=== PATIENT | male | born 1965 | race Caucasian/White ===

== ENCOUNTER 2018-08-11 11:34 | Emergency (ER) | payer OTHER ==
[2018-08-11] MEDS ORDERED: Bupivacaine 0.5% 50 ML MDV INFILT ONE (11:52)
--- NOTE | 2018-08-11 11:53 | EDM.PDOC ---
ED HPI GENERAL MEDICAL PROBLEM - General Chief Complaint: Upper Extremity Injury/Pain Stated Complaint: LEFT FIRST FINGER PINCHED IN DOOR Time Seen by Provider: 08/11/18 11:45 Source of Information: Reports: Patient History Limitations: Reports: No Limitations - History of Present Illness INITIAL COMMENTS - FREE TEXT/NARRATIVE: 53-year-old male pinched his finger in a door. Onset: Sudden Duration: Hour(s): (Within the last hour) Location: Reports: Other (Left index finger) Associated Symptoms: Reports: No Other Symptoms Left Hand Pain Score (Numeric/FACES): 5 - Related Data Allergies Allergy/AdvReac Type Severity Reaction Status Date / Time No Known Allergies Allergy Verified 08/11/18 11:49 Home Meds: Home Meds Dextroamphetamine/Amphetamine [Adderall 20 mg Tablet] 20 tab PO TID 08/11/18 [ History] Lisinopril 30 mg PO DAILY 08/11/18 [History] Review of Systems - Review of Systems Review Of Systems: See Below Constitutional: Denies: Fever Respiratory: Denies: Shortness of Breath GI/Abdominal: Denies: Nausea, Vomiting ED EXAM, GENERAL - Physical Exam Exam: See Below Exam Limited By: No Limitations General Appearance: Alert, No Apparent Distress, Anxious Respiratory/Chest: No Respiratory Distress Extremities: Other (Exam is otherwise limited to the left hand. The patient has a crush injury to the distal index finger. There is a 3 cm angled laceration to the pulp, and also a subungual hematoma under the nail. The DIP joint is nontender.) Course - Vital Signs Last Recorded V/S: Last Vital Signs Temp 97.8 F 08/11/18 12:12 Pulse 67 08/11/18 12:12 Resp 16 08/11/18 12:12 BP 93/36 L 08/11/18 12:12 Pulse Ox 94 L 08/11/18 12:12 - Orders/Labs/Meds Meds: Medications Discontinued Medications Generic Name Dose Route Start Last Admin Trade Name Freq PRN Reason Stop Dose Admin Bacitracin 1 dose 08/11/18 12:19 08/11/18 12:33 Bacitracin Oint 1 Gm TOP 08/11/18 12:20 1 dose ONETIME ONE Administration Bupivacaine HCl 50 ml 08/11/18 11:52 08/11/18 12:33 Marcaine 0.5% INFILT 08/11/18 11:53 50 ml ONETIME ONE Administration Bupivacaine HCl/Epinephrine Bitart Confirm 08/11/18 11:57 08/11/18 12:33 Marcaine 0.5%/Epinephrine 1:200,000 Administered 08/11/18 11:58 Not Given Dose 50 ml .ROUTE .[facility] - Re-Assessments/Exams Free Text/Narrative Re-Assessment/Exam: 08/11/18 12:14 The finger was sterilized with alcohol, and a 0.5% Marcaine digital block was infiltrated to the finger. The wound was then cleansed thoroughly and 6 4-0 Ethilon sutures were used to close the laceration and cautery was used to release the subungual hematoma. Topical bacitracin and a dressing was applied, the patient's tetanus is current. A finger splint was given to protect the finger and the sutures can come out in 8 days. Departure - Departure Time of Disposition: 12:34 Disposition: Home, Self-Care 01 Condition: Good Clinical Impression: Finger laceration Qualifiers: Encounter type: initial encounter Finger: index finger Damage to nail status: with damage Foreign body presence: without foreign body Laterality: left Qualified Code(s): S61.311A - Laceration without foreign body of left index finger with damage to nail, initial encounter Subungual hematoma of finger Qualifiers: Encounter type: initial encounter Qualified Code(s): S60.10XA - Contusion of unspecified finger with damage to nail, initial encounter - Discharge Information Instructions: Laceration Care, Adult Referrals: PCP,None [Primary Care Provider] - Forms: ED Department Discharge Care Plan Goals: Keep finger covered and clean while healing. Sutures can be removed in 8 days, and wear splint to protect the finger while healing. Recheck sooner if concerns of infection or not healing satisfactorily.
[2018-08-11] MEDS: Bupivacaine 0.5%/EPINEPHrine 1:200,000 50 ML MDV ONE ×2 (12:16→12:33)
[2018-08-11] MEDS ORDERED: Bacitracin Oint 1 GM U/D Packet TOP ONE (12:19)
== END 2018-08-11 12:34 | disposition home or self-care (01) ==
LOC: JP.ED 11:34
DX: S61.311A Laceration without foreign body of left index finger with damage to nail, initial encounter (principal); Z79.899 Other long term (current) drug therapy; W23.0XXA Caught, crushed, jammed, or pinched between moving objects, initial encounter
CPT/HCPCS: 11740; 12002; 99283; J3490

== ENCOUNTER 2023-01-19 22:11 | Inpatient (IN) | payer OTHER ==
[2023-01-19] MEDS ORDERED: Ondansetron 4 MG/2 ML SDV IVPUSH ONE (22:57)
[2023-01-19] MEDS ORDERED: Sodium Chloride 0.9% 10 ML Syringe FLUSH PRN (22:57)
[2023-01-19] MEDS ORDERED: Sodium Chloride 0.9% 1,000 ML IV SCH (23:00)
[2023-01-19] MEDS ORDERED: Iopamidol 612 MG/ML 100 ML Bottle IV STA (23:06)
[2023-01-19] MEDS ORDERED: Sodium Chloride 0.9% 50 ML IV STA (23:07)
[2023-01-19 23:35] LABS: ESTIMATED GFR 105 mL/min (>60)
[2023-01-19 23:48] LABS: CORONAVIRUS COVID-19 NAA NEGATIVE (NEGATIVE)
[2023-01-20] MEDS ORDERED: fentaNYL 50 MCG/ML SDV IVPUSH PRN (00:10)
[2023-01-20] MEDS ORDERED: Sodium Chloride 0.9% 1,000 ML IV SCH (00:30)
[2023-01-20] MEDS: Piperacillin/Tazobactam 3.375 GM in Sodium Chloride 0.9% 50 ML IV SCH ×2 (00:43→06:10)
[2023-01-20] MEDS: HYDROmorphone 1 MG/ML Syringe IVPUSH PRN ×5 (01:33→08:33)
[2023-01-20] MEDS ORDERED: Acetaminophen 1,000 MG in Premix Bag 1 BAG IV ONE ×2 (07:26→07:45)
[2023-01-20] MEDS ORDERED: Rocuronium 50 MG/5 ML Vial ONE ×2 (08:29→10:56)
[2023-01-20] MEDS ORDERED: fentaNYL 250 MCG/5 ML SDV ONE ×2 (08:29→10:17)
[2023-01-20] MEDS ORDERED: Neostigmine Methylsulfate 1 MG/ML 5 ML Syringe ONE (08:29)
[2023-01-20] MEDS ORDERED: Dexamethasone 4 MG/ML SDV ONE (08:29)
[2023-01-20] MEDS ORDERED: Succinylcholine 200 MG/10 ML MDV ONE (08:29)
[2023-01-20] MEDS ORDERED: Propofol 200 MG/20 ML SDV ONE (08:29)
[2023-01-20] MEDS ORDERED: Glycopyrrolate 0.2 MG/ML 5 ML MDV ONE (08:29)
[2023-01-20] MEDS ORDERED: Ondansetron 4 MG/2 ML SDV ONE (08:29)
[2023-01-20] MEDS ORDERED: Bupivacaine 0.5%/EPINEPHrine 1:200,000 50 ML MDV ONE (09:59)
[2023-01-20] MEDS ORDERED: Sodium Chloride 0.9% 10 ML ONE (10:33)
[2023-01-20] MEDS ORDERED: Meropenem 500 MG SDV ONE (10:33)
[2023-01-20] MEDS ORDERED: Meropenem 500 MG SDV IRR ONE (10:42)
[2023-01-20] MEDS ORDERED: Lactated Ringers 1,000 ML ONE ×2 (11:26)
[2023-01-20] MEDS: Piperacillin/Tazobactam/Dext 3.375 GM in Premix Bag 1 BAG IV SCH ×3 (12:29→23:46)
[2023-01-20] MEDS: Sodium Chloride 0.9% 1,000 ML IV SCH ×2 (13:38→22:12)
[2023-01-20] MEDS: Amphetamine/Dextroamphetamine Salts 10 MG Tab PO SCH (16:13)
[2023-01-20] MEDS: HYDROmorphone 0.5 MG/0.5 ML Syringe IVPUSH PRN ×2 (17:43→21:48)
[2023-01-20] MEDS: Acetaminophen/HYDROcodone 325-5 MG Tab PO PRN ×2 (19:26→23:44)
[2023-01-21] MEDS: HYDROmorphone 0.5 MG/0.5 ML Syringe IVPUSH PRN (02:31)
[2023-01-21] MEDS: Acetaminophen/HYDROcodone 325-5 MG Tab PO PRN ×5 (04:43→20:27)
[2023-01-21] MEDS: Piperacillin/Tazobactam/Dext 3.375 GM in Premix Bag 1 BAG IV SCH ×4 (05:35→23:47)
[2023-01-21] MEDS ORDERED: HYDROmorphone/Normal Saline 6 MG/30 ML PCA Vial IV PRN (07:06)
[2023-01-21] MEDS ORDERED: Naloxone 0.4 MG/ML SDV IV PRN (07:15)
[2023-01-21] MEDS: Amphetamine/Dextroamphetamine Salts 10 MG Tab PO SCH ×3 (08:19→16:21)
[2023-01-21] MEDS: Docusate Sodium 100 MG Cap PO SCH ×2 (11:12→20:25)
[2023-01-21] MEDS: Bisacodyl 5 MG Tab PO SCH ×2 (11:13→20:24)
[2023-01-21] MEDS: Lisinopril 20 MG Tab PO SCH (13:40)
[2023-01-21] MEDS ORDERED: Sodium Chloride 0.9% 1,000 ML IV SCH (15:30)
[2023-01-22] MEDS: Acetaminophen/HYDROcodone 325-5 MG Tab PO PRN ×3 (00:36→17:31)
[2023-01-22] MEDS: Piperacillin/Tazobactam/Dext 3.375 GM in Premix Bag 1 BAG IV SCH ×3 (05:31→17:33)
[2023-01-22] MEDS: Ondansetron 4 MG/2 ML SDV IVPUSH PRN ×2 (05:39→17:26)
[2023-01-22] MEDS: Amphetamine/Dextroamphetamine Salts 10 MG Tab PO SCH ×3 (07:29→15:09)
[2023-01-22] MEDS: Lisinopril 20 MG Tab PO SCH (08:26)
[2023-01-22] MEDS: Docusate Sodium 100 MG Cap PO SCH ×2 (08:26→20:41)
[2023-01-22] MEDS: Bisacodyl 5 MG Tab PO SCH ×2 (08:26→20:41)
[2023-01-22] MEDS ORDERED: Bisacodyl 10 MG Supp RECTAL ONE (09:30)
[2023-01-22] MEDS: Metoclopramide 10 MG/2 ML SDV IV SCH ×3 (10:32→21:41)
[2023-01-22] MEDS: Azithromycin 125 MG in Sodium Chloride 0.9% 100 ML IV SCH ×2 (10:32→22:40)
[2023-01-22] MEDS ORDERED: Sodium Phosphate,Monobasic/Sodium Phosphate,Dibasic Enema 133 ML Bottle RECTAL ONE (15:08)
[2023-01-22] MEDS ORDERED: Bisacodyl 10 MG Supp RECTAL PRN (16:00)
[2023-01-23] MEDS: Piperacillin/Tazobactam/Dext 3.375 GM in Premix Bag 1 BAG IV SCH ×5 (00:01→23:44)
[2023-01-23] MEDS: Metoclopramide 10 MG/2 ML SDV IV SCH (04:01)
[2023-01-23] MEDS: Amphetamine/Dextroamphetamine Salts 10 MG Tab PO SCH ×4 (07:53→17:04)
[2023-01-23] MEDS: Lisinopril 20 MG Tab PO SCH (08:01)
[2023-01-23 08:14] LABS: ESTIMATED GFR 65 mL/min (>60)
[2023-01-23] MEDS ORDERED: Sodium Chloride 0.9% 1,000 ML IV ONE (10:15)
[2023-01-23] MEDS ORDERED: HYDROmorphone 0.5 MG/0.5 ML Syringe IVPUSH PRN (10:32)
[2023-01-23] MEDS: Enoxaparin 40 MG/0.4 ML Syringe SUBCUT SCH (11:36)
[2023-01-23] MEDS: Sodium Chloride 0.9% 1,000 ML IV SCH ×2 (14:14→22:45)
[2023-01-23] MEDS: Ketorolac 15 MG/ML SDV IVPUSH SCH ×2 (17:04→21:22)
[2023-01-24] MEDS: Ketorolac 15 MG/ML SDV IVPUSH SCH ×4 (04:38→21:47)
[2023-01-24] MEDS: Piperacillin/Tazobactam/Dext 3.375 GM in Premix Bag 1 BAG IV SCH ×4 (06:22→23:47)
[2023-01-24] MEDS ORDERED: Azithromycin 125 MG in Sodium Chloride 0.9% 100 ML IV SCH (07:00)
[2023-01-24] MEDS ORDERED: Bisacodyl 10 MG Supp RECTAL PRN (07:27)
[2023-01-24] MEDS: Enoxaparin 40 MG/0.4 ML Syringe SUBCUT SCH (08:00)
[2023-01-24] MEDS: Lisinopril 20 MG Tab PO SCH (08:00)
[2023-01-24] MEDS: Amphetamine/Dextroamphetamine Salts 10 MG Tab PO SCH ×3 (08:02→15:34)
[2023-01-24] MEDS: Azithromycin 125 MG in Sodium Chloride 0.9% 100 ML IV SCH ×3 (08:03→19:22)
[2023-01-25] MEDS: Ketorolac 15 MG/ML SDV IVPUSH SCH ×4 (03:58→22:55)
[2023-01-25] MEDS: Piperacillin/Tazobactam/Dext 3.375 GM in Premix Bag 1 BAG IV SCH (05:59)
[2023-01-25] MEDS: Amphetamine/Dextroamphetamine Salts 10 MG Tab PO SCH ×3 (07:47→16:16)
[2023-01-25] MEDS: Azithromycin 125 MG in Sodium Chloride 0.9% 100 ML IV SCH (08:20)
[2023-01-25] MEDS: Lisinopril 20 MG Tab PO SCH (09:07)
[2023-01-25] MEDS: Enoxaparin 40 MG/0.4 ML Syringe SUBCUT SCH (09:08)
[2023-01-26] MEDS: Ketorolac 15 MG/ML SDV IVPUSH SCH ×2 (03:38→09:23)
[2023-01-26] MEDS: Amphetamine/Dextroamphetamine Salts 10 MG Tab PO SCH (07:52)
[2023-01-26] MEDS: Enoxaparin 40 MG/0.4 ML Syringe SUBCUT SCH (09:22)
[2023-01-26] MEDS: Lisinopril 20 MG Tab PO SCH (09:22)
== END 2023-01-26 14:36 | disposition home or self-care (01) | DRG 342 ==
LOC: JP.ED 22:11 → JP.SDS 01-20 08:42 → JP.ICU 01-20 12:11 → UNDODISIN 01-26 09:45
PROVIDERS: ADMIT Student in an Organized Health Care Education/Training Program; ATTEND Student in an Organized Health Care Education/Training Program
PROC: 0DTJ4ZZ Resection of Appendix, Percutaneous Endoscopic Approach (ICD-10-PCS; principal; 2023-01-20)
DX: K35.20 Acute appendicitis with generalized peritonitis, without abscess (principal); K56.7 Ileus, unspecified; I10 Essential (primary) hypertension; Z96.659 Presence of unspecified artificial knee joint; Z20.822 Contact with and (suspected) exposure to COVID-19; K38.1 Appendicular concretions; Z98.890 Other specified postprocedural states; Z79.899 Other long term (current) drug therapy
CPT/HCPCS: 0241U; 36415; 71045; 71045-26; 74018; 74018-26; 74019; 74019-26; 74177; 80048; 80053; 83605; 83690; 83735; 84100; 85025; 85027; 88304; 93005; 93010; 99285; A9270-GY; J0131; J0330; J0456; J1100; J1170; J1650; J1885; J2185; J2405; J2543; J2704; J2710; J2765; J3010; J3490; J7030; J7120; Q9967